=== PATIENT | female | born 1970 | race Caucasian/White ===

== ENCOUNTER 2021-04-10 18:30 | Emergency (ER) | payer OTHER ==
[~2021-04-10] VITALS: Ht 154.9 cm; Wt 68.0 kg
[~2021-04-10 18:30] MED LIST: AUGMENTIN875TAB PO; BENZONATATE200 MG PO; COMBIVENT RESPIMAT; EPIPEN0.3 MG IM; FIORICET 50-3001 CAP PO; FLEXERIL OR; FLEXERIL5 M1 PO; FLONASE NASAL50 MCG; HYDROCHLOROT12.5 MG PO; LISINOPRIL20 M1 PO; LORTAB5 PO; MEDDOSEPAK OR; MUCINEX600 MG PO; NAPROSYN500 MG PO; PATANASE0.6 %; PREDNISONE20 MG PO; PROAIR HFA IN; SINGULAIR10 MG PO; SOLU-MEDROL125 MG IM; SYMBICORT; ZESTRIL10 M1 PO
[2021-04-10] MEDS ORDERED: KEFLEX500 MG PO (20:37)
[2021-04-10 20:58] VITALS: BP 135/94
== END 2021-04-10 21:12 | disposition home or self-care (01) | DRG 316 ==
LOC: ED 18:30
DX: T82.847A Pain due to cardiac prosthetic devices, implants and grafts, initial encounter (principal); Y83.1 Surgical operation with implant of artificial internal device as the cause of abnormal reaction of the patient, or of later complication, without mention of misadventure at the time of the procedure; Z95.0 Presence of cardiac pacemaker

== ENCOUNTER 2021-09-13 00:22 | Emergency (ER) | payer OTHER ==
[~2021-09-13] VITALS: Ht 154.9 cm; Wt 68.0 kg
[~2021-09-13 00:22] MED LIST changes: +KEFLEX500 MG PO
[2021-09-13 01:40] LABS: HEMATOCRIT 43.7 % (37.0-47.0); HEMOGLOBIN 14.7 g/dl (12.0-16.0); IMMATURE GRANULOCYTES 0.4 % (0.0-5.0); MEAN CELL VOLUME 95.8 fL CALC (80.0-100.0); MEAN CORPUSCULAR HGB 32.2 pG CALC (26.0-32.0); MEAN CORPUSCULAR HGB CONC 33.6 g/dL CAL (32.0-36.0); NEUT# 6.14 thou/uL (2.00-7.15); RED BLOOD COUNT 4.56 mill/uL (4.20-5.60); RED CELL DISTRI WIDTH 11.7 % (11.5-15.5)
[2021-09-13 01:55] LABS: ALBUMIN 4.6 g/dL (3.2-5.0); ALKALINE PHOSPHATASE 75 u/l (38-126); AMYLASE 61 u/l (30-110); ANION GAP 12 (6-22 (CALC)); BILIRUBIN, TOTAL 0.6 mg/dL (0.0-1.4); BUN 13 mg/dL (7-17); BUN/CREATININE RATIO 15 (12-20 (CALC)); CARBON DIOXIDE 26 mmol/l (22-30); CHLORIDE 105 mmol/l (95-108); CREATININE 0.8 mg/dL (0.5-1.0); GFR > 60 ML/MIN (>=60 (CALC)); GFR FOR AFR.AMER. > 60 ML/MIN (>=60 (CALC)); LIPASE 64 u/l (23-300); POTASSIUM 3.8 mmol/l (3.5-5.1); SGOT/AST 24 u/l (14-36); SODIUM 140 mmol/l (137-146); TOTAL PROTEIN 8.3 g/dL (6.3-8.2)
[2021-09-13 02:08] LABS: MYOGLOBIN 22 ng/mL (0 - 62)
[2021-09-13 03:11] LABS: URINE BILIRUBIN - DIPSTICK NEGATIVE (NEGATIVE); URINE BLOOD DIPSTICK TRACE-INTACT (NEGATIVE); URINE COLOR YELLOW; URINE GLUCOSE - DIPSTICK NEGATIVE (NEGATIVE); URINE KETONE TRACE mg/dL (NEGATIVE); URINE LEUK ESTERASE NEGATIVE (NEGATIVE); URINE PH 7.5 (4.5-8.0); URINE PROTEIN - DIPSTICK NEGATIVE (NEG-TRACE); URINE UROBILINOGEN - DIPSTICK 0.2 E.U./dL (0.2)
[2021-09-13 03:16] LABS: URINE NITRITE - DIPSTICK NEGATIVE (Negative)
[2021-09-13] MEDS ORDERED: MIRALAX17 GM PO (03:48)
[2021-09-13] MEDS ORDERED: ONDANSETRON4 MG PO (03:55)
[2021-09-13] MEDS ORDERED: PREVACID30 M3 PO (03:55)
[2021-09-13 04:11] VITALS: BP 143/93
== END 2021-09-13 04:20 | disposition home or self-care (01) | DRG 392 ==
LOC: ED 00:22
PROVIDERS: Emergency Medicine
DX: K29.70 Gastritis, unspecified, without bleeding (principal); I10 Essential (primary) hypertension; Z90.49 Acquired absence of other specified parts of digestive tract
CPT/HCPCS: Q9967; S0164

== ENCOUNTER 2021-09-15 17:46 | Observation (INO) | payer OTHER ==
[~2021-09-15] VITALS: Ht 162.6 cm; Wt 65.0 kg
[~2021-09-15 17:46] MED LIST changes: +MIRALAX17 GM PO; +ONDANSETRON4 MG PO; +PREVACID30 M3 PO
--- NOTE | 2021-09-15 17:50 | NUR ---
PT TO ER BED 6 FOR TRIAGE AT THIS TIME. CALL LIGHT WITHIN REACH.
[2021-09-15 18:27] LABS: HEMOGLOBIN 13.8 g/dl (12.0-16.0); IMMATURE GRANULOCYTES 0.3 % (0.0-5.0); MEAN CELL VOLUME 95.3 fL CALC (80.0-100.0); MEAN CORPUSCULAR HGB 32.1 pG CALC (26.0-32.0); MEAN CORPUSCULAR HGB CONC 33.7 g/dL CAL (32.0-36.0); NEUT# 5.47 thou/uL (2.00-7.15); RED BLOOD COUNT 4.3 mill/uL (4.20-5.60); RED CELL DISTRI WIDTH 11.8 % (11.5-15.5)
--- NOTE | 2021-09-15 18:30 | NUR ---
PT AMBULATED TO BATHROOM WITH STEADY GAIT.
[2021-09-15 18:40] LABS: ALBUMIN 4.1 g/dL (3.2-5.0); ALKALINE PHOSPHATASE 177 u/l (38-126); ANION GAP 13 (6-22 (CALC)); BILIRUBIN, TOTAL 1.5 mg/dL (0.0-1.4); BUN 12 mg/dL (7-17); BUN/CREATININE RATIO 16 (12-20 (CALC)); CARBON DIOXIDE 27 mmol/l (22-30); CHLORIDE 99 mmol/l (95-108); CREATININE 0.7 mg/dL (0.5-1.0); GFR > 60 ML/MIN (>=60 (CALC)); GFR FOR AFR.AMER. > 60 ML/MIN (>=60 (CALC)); POTASSIUM 3.5 mmol/l (3.5-5.1); SGOT/AST 71 u/l (14-36); SODIUM 135 mmol/l (137-146)
[2021-09-15 18:43] LABS: URINE BLOOD DIPSTICK MODERATE (NEGATIVE); URINE GLUCOSE - DIPSTICK NEGATIVE (NEGATIVE); URINE KETONE 40 mg/dL (NEGATIVE); URINE LEUK ESTERASE NEGATIVE (NEGATIVE); URINE PH 5.5 (4.5-8.0); URINE PROTEIN - DIPSTICK 30 mg/dL (NEG-TRACE)
[2021-09-15 18:45] LABS: URINE BILIRUBIN - DIPSTICK NEGATIVE (NEGATIVE); URINE COLOR DK. YELLOW; URINE NITRITE - DIPSTICK NEGATIVE (Negative)
[2021-09-15 18:52] LABS: URINE SQUAMOUS EPITHELIAL CELL MODERATE EPI/hpf (0-FEW); URINE WBC 0-2 WBC/hpf (0-5)
--- NOTE | 2021-09-15 19:15 | NUR ---
REPORT TO RITA WOLFF
--- NOTE | 2021-09-15 20:17 | NUR ---
OR AT BEDSIDE
--- NOTE | 2021-09-15 22:52 | NUR ---
PT ARRIVED TO MS2 VIA STRETCHER FROM OR ACCOMPANIED BY OR NURSE. PT ALERT AND ORIENTED X3, PT TRANSFERRED SELF FROM STRETCHER TO BED, PT TOLERATED WELL. ORIENTED PT TO ROOM AND CALL LIGHT, DISCUSSED POC, TEDS AND SCD'S APPLIED, NOTED INCISIONS X3 TO ABD SECURED WITH DERMABOND, KO DRAIN X1, NOTED BRUISING TO ABD, PT C/O PAIN 5/10. NO EDEMA, PT ON 2L NC SATS 95%. ADMISSION ASSESSMENT COMPLETED, IV FLUIDS INFUSING TO RAC, CALL LIGHT IN REACH,CONTINUE TO MONITOR.
[2021-09-15 23:08] VITALS: BP 116/85
[2021-09-15 23:23] VITALS: BP 124/70
--- NOTE | 2021-09-15 23:30 | NUR ---
PT C/O PAIN BUT DOES NOT WANT TO TRY PERCOCET, PT MEDICATED PER MAR. ASSISTED PT TO BATHROOM, AMBULATED WITH STEADY GAIT, PT VOIDED, ASSISTED BACK TO BED, CALL LIGHT IN REACH,CONTINUE TO MONITOR.
[2021-09-16] VITALS (9 sets, daily range): BP systolic 93–112; BP diastolic 54–70
--- NOTE | 2021-09-16 03:50 | NUR ---
PT RESTING IN BED, C/O PAIN 04/24 TO ABD, PT MEDICATED PER DEC, TOLERATED PO FLUIDS WELL, CALL LIGHT IN REACH,CONTINUE TO MONITOR.
[2021-09-16 05:33] LABS: IMMATURE GRANULOCYTES 0.4 % (0.0-5.0); MEAN CELL VOLUME 95.5 fL CALC (80.0-100.0); MEAN CORPUSCULAR HGB 31.8 pG CALC (26.0-32.0); MEAN CORPUSCULAR HGB CONC 33.3 g/dL CAL (32.0-36.0); NEUT# 5.56 thou/uL (2.00-7.15); RED BLOOD COUNT 3.77 mill/uL (4.20-5.60); RED CELL DISTRI WIDTH 11.8 % (11.5-15.5)
[2021-09-16 05:58] LABS: BUN 9 mg/dL (7-17); BUN/CREATININE RATIO 14 (12-20 (CALC)); CARBON DIOXIDE 27 mmol/l (22-30); CHLORIDE 105 mmol/l (95-108); CREATININE 0.6 mg/dL (0.5-1.0); GFR > 60 ML/MIN (>=60 (CALC)); GFR FOR AFR.AMER. > 60 ML/MIN (>=60 (CALC)); SODIUM 140 mmol/l (137-146)
--- NOTE | 2021-09-16 06:00 | NUR ---
PROVIDED PT TEACHING ON INCENTIVE SPIROMETER, PT ABLE TO DEMONSTRATE IT'S USE. TOTAL VOLUME 1250ML. PT TOLERATING WELL, ICE PACK APPLIED TO ABD, REMOVED 40CC OF BLOODY DRAINAGE FROM KO DRAIN.PT MEDICATED PER DEC, CALL LIGHT IN REACH,CONTINUE TO MONITOR.
[2021-09-16 06:02] LABS: ANION GAP 13 (6-22 (CALC)); POTASSIUM 4.5 mmol/l (3.5-5.1)
--- NOTE | 2021-09-16 07:35 | NUR ---
SHIFT CHANGE REPORT, PT AWAKE ALERT AND ORIENTED RESTING IN BED, CO SORE PAIN TO ABD @ 4/10, ABD TENDER TO PLAPATION ANDDISTENDED AT THIS TIME WITH HYPOACTIVE SOUNDS, INC X [address] WELL APPRIXIMATED WITH DERMABOND, KO DRAIN TO RLQ IN PLACE WITH SEROSANGUINOUS DRAINAGE AND SITE COVERED WITH AUTUMN AND SECURED WITH TAPE. IVF INFUSING @ 125/HR TO SITE IN RAC, ASSISTED PT TO BR AND BACK TO BED. DR AVILA HERE AND DISCUSSED PLAN OF CARE FOR ONE MORE DAY STAY FOR IV ABT, TEDS AND SCD IN PLACE, CALL BULLOCK IN REACH AND BED LOCKED IN LOWEST POSITION.
--- NOTE | 2021-09-16 12:00 | NUR ---
AMBULATES TO BR NEEDED, PAIN CONTROLLED WHEN LYING IN BED BUT AGGRAVATED BY ACTIVITY, ADVISED CONDITION IS NORMAL FOR POST SURGERY BUT STAFF WILL ADDRESS PAIN CONCERN NEEDED, ATE AND TOLERATED REGULAR MEAL WELL, WILL CONTINUE TO MONITOR AND ADDRESS NEEDS.
--- NOTE | 2021-09-16 16:01 | NUR ---
RESTING IN BED, PAIN CONCERNS ADDRESSED, PT REPORTS ABD BINDER IS VERY UNCOMFORTABLE AND CAUSES MORE PAIN, ADVISED TO CONTINUE USING PILLOW FOR ABD SUPPORT. ALL NEEDS MET OR ADDRESSED, CALL BULLOCK IN REACH.
--- NOTE | 2021-09-16 20:00 | NUR ---
PT SITTING UP IN BED WATCHING TV, NO SIGNS OF DISTRESS NOTED, RESP EVEN AND UNLABORED. PT ALERT AND ORIENTED X3, DISCUSSED POC, ENCOURAGED USE OF INCENTIVE SPIROMETER, SCD'S IN PLACE. ICE PACK PROVIDED. 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 MINIMAL DRAINAGE NOTED. ASSESSMENT COMPLETED, PT VOICES NO NEEDS OR COMPLAINTS AT THIS TIME. CALL LIGHT IN REACH,CONTINUE TO MONITOR.
--- NOTE | 2021-09-16 23:29 | NUR ---
PT RESTING IN BED WATCHING TV, PT MEDICATED PER MAR, VOICES NO NEEDS OR COMPLAINTS AT THIS TIME, CALL LIGHT IN REACH,CONTINUE TO MONITOR.
[2021-09-17 04:00] VITALS: BP 98/65
--- NOTE | 2021-09-17 08:00 | NUR ---
REPORT RECEIVED FROM LEE PHELPS. PT AWAKE ALERT AND APPROPRIATE. DENIES PAIN, SOB OR DISCOMFORT. STATES "WHEN IM AT THIS LEVEL SITTING, IM IN NO PAIN." ASSESSMENT PREFORMED. PT HAS KO DRAIN LOCATED TO THE RLQ, DRAINING S/S FLUID. BOWEL SOUNDS PRESENT IN ALL FOUR QUADRANTS. POC DISCUSSED AT THIS TIME. PT STATES UNDERSTANDING. CALL LIGHT WITHIN REACH. INSTRUCTED PT TO CALL FOR ASSISTANCE, VERBALIZES UNDERSTANDING.
[2021-09-17 08:25] VITALS: BP 111/73
[2021-09-17 08:26] VITALS: BP 111/73
--- NOTE | 2021-09-17 09:10 | NUR ---
preliminary blood cx shows gram positive cocci in 3/4 vials, probable contaminant. reported to dr carter. will f/u with final results
--- NOTE | 2021-09-17 12:00 | NUR ---
ROUNDING ON FLOOR AT THIS TIME. PT STATES UNDERSTANDING FOR DISCHARGE. PT IS EAGER TO GO HOME. DENIES PAIN, SOB OR DISCOMFORT. INSTRUCTED PT TO CALL FOR ASSISTANCE, VERBALIZES UNDERSTANDING.
[2021-09-17] MEDS ORDERED: PERCOCET 5/325M1 TAB PO (12:48)
[2021-09-17] MEDS ORDERED: BACTRIM DS1 TAB PO (12:52)
[2021-09-17] MEDS ORDERED: LORTAB5 PO ×2 (12:52→13:45)
--- NOTE | 2021-09-17 14:03 | NUR ---
KO DRAIN REMOVED AT THIS TIME. PT TOLERATED REMOVAL WELL. NO DRAINAGE NOTED FROM PUNCTURE AFTER DRAIN REMOVED. PUNCTURE SITE COVERED WITH 4X4, ABD PAD AND TAPE. PT IV SITE REMOVED AND FAMILY AT BS TO ASSIST IN GETTING DRESSED FOR DISCHARGE.
== END 2021-09-17 14:13 | disposition home or self-care (01) | DRG 343 ==
LOC: ED 17:46 → ED-I 18:40 → ED 18:54 → MS2 18:55
PROVIDERS: Emergency Medicine; ADMIT Surgery; ATTEND Surgery
PROC: 0DTJ4ZZ Resection of Appendix, Percutaneous Endoscopic Approach (ICD-10-PCS; principal; 2021-09-15)
DX: K35.30 Acute appendicitis with localized peritonitis, without perforation or gangrene (principal); I10 Essential (primary) hypertension; J45.909 Unspecified asthma, uncomplicated; Z20.822 Contact with and (suspected) exposure to COVID-19
CPT/HCPCS: J0131; J1100; J2710; Q9967

== ENCOUNTER 2022-05-20 12:57 | Emergency (ER) | payer SELFPAY ==
[~2022-05-20] VITALS: Ht 154.9 cm; Wt 65.7 kg
[~2022-05-20 12:57] MED LIST changes: +BACTRIM DS1 TAB PO; +PERCOCET 5/325M1 TAB PO
[2022-05-20 13:28] LABS: HEMATOCRIT 36.7 % (37.0-47.0); HEMOGLOBIN 12.6 g/dl (12.0-16.0); IMMATURE GRANULOCYTES 0.3 % (0.0-5.0); MEAN CELL VOLUME 92.4 fL CALC (80.0-100.0); MEAN CORPUSCULAR HGB 31.7 pG CALC (26.0-32.0); MEAN CORPUSCULAR HGB CONC 34.3 g/dL CAL (32.0-36.0); NEUT# 2.22 thou/uL (2.00-7.15); RED BLOOD COUNT 3.97 mill/uL (4.20-5.60); RED CELL DISTRI WIDTH 12.4 % (11.5-15.5)
[2022-05-20 13:41] LABS: ALBUMIN 4.2 g/dL (3.2-5.0); BUN 14 mg/dL (7-17); BUN/CREATININE RATIO 16 (12-20 (CALC)); CARBON DIOXIDE 27 mmol/l (22-30); CHLORIDE 108 mmol/l (95-108); CREATININE 0.9 mg/dL (0.5-1.0); GFR FOR AFR.AMER. > 60 ML/MIN (>=60 (CALC)); GFR OTHER RACES > 60 ML/MIN (>=60 (CALC)); SGOT/AST 27 u/l (14-36); SODIUM 142 mmol/l (137-146); TOTAL PROTEIN 7.3 g/dL (6.3-8.2)
[2022-05-20 13:44] LABS: ALKALINE PHOSPHATASE 65 u/l (38-126); ANION GAP 10 (6-22 (CALC)); BILIRUBIN, TOTAL 0.3 mg/dL (0.0-1.4); INTERNATIONAL NORMALIZED RATIO 0.9 RATIO (0.7-1.3); POTASSIUM 3.4 mmol/l (3.5-5.1); PROTHROMBIN TIME 9.8 SECONDS (9.0-12.5)
[2022-05-20 13:45] VITALS: BP 156/136
[2022-05-20 14:27] VITALS: BP 172/78
[2022-05-20 14:31] VITALS: BP 168/98
[2022-05-20 14:46] LABS: URINE BILIRUBIN - DIPSTICK NEGATIVE (NEGATIVE); URINE BLOOD DIPSTICK NEGATIVE (NEGATIVE); URINE COLOR YELLOW; URINE GLUCOSE - DIPSTICK NEGATIVE (NEGATIVE); URINE KETONE NEGATIVE (NEGATIVE); URINE LEUK ESTERASE NEGATIVE (NEGATIVE); URINE PROTEIN - DIPSTICK NEGATIVE (NEG-TRACE); URINE UROBILINOGEN - DIPSTICK 0.2 E.U./dL (0.2)
[2022-05-20 14:51] LABS: URINE NITRITE - DIPSTICK NEGATIVE (Negative)
[2022-05-20 15:30] VITALS: BP 162/104
[2022-05-20 16:15] VITALS: BP 162/104
== END 2022-05-20 16:15 | disposition left against medical advice (07) | DRG 65 ==
LOC: ED 12:57
PROVIDERS: Family Medicine
DX: I63.9 Cerebral infarction, unspecified (principal); G81.91 Hemiplegia, unspecified affecting right dominant side; R42 Dizziness and giddiness; R47.01 Aphasia; R29.704 NIHSS score 4; I10 Essential (primary) hypertension; J45.909 Unspecified asthma, uncomplicated; T46.5X6A Underdosing of other antihypertensive drugs, initial encounter; Z91.128 Patient's intentional underdosing of medication regimen for other reason; Z91.19 Patient's noncompliance with other medical treatment and regimen
CPT/HCPCS: Q3014; Q9967